=== PATIENT | female | born 1950 | race Caucasian/White ===

== ENCOUNTER → 2017-12-07 | Outpatient (CLI) | payer MEDICARE, OTHER ==
[~2017-12-07] MED LIST: AMOX1TAB12 PO; ASPI-586 PO; ATOR10TA PO; DULO30CA3 PO; ESOM40SU PO; ESTR1PAT89 TD; FURO-125 PO; GABA-488 PO; INSU100V16 SQ; INSU100V6 SQ; LACT20SO2 PO; LEVO88TA2 PO; MAGN500C16 PO; METF500T4 PO; ONDA8TAB9 PO; OXYC-471 PO; RIFA550T PO; TACR0.5C6 PO; ZINC50TA51 PO
--- NOTE | 2017-12-07 12:20 | Diagnostic Imaging Report ---
INDICATION: Pneumonia. Time of exam: 12:22 PM Correlation is made with prior study from 11/22/2017. The heart size is stable. There has been improved aeration to the right lung base. There does continue to be a small amount of pleural fluid on the right. The left lung is clear. The pulmonary vascularity is normal. There is no pneumothorax. IMPRESSION: Improved aeration to the right base with persistent small right pleural effusion when compared with exam from 11/22/2017. Dictated by: Dictated on workstation # [id number]
== END ==
LOC: RAD 11:54
PROVIDERS: ATTEND Family Medicine
DX: J90 Pleural effusion, not elsewhere classified (principal); J18.9 Pneumonia, unspecified organism
CPT/HCPCS: 71046